=== PATIENT | male | born 1960 | race Hispanic/Latino ===

== ENCOUNTER 2017-11-12 16:09 | Emergency (ER) | payer SELFPAY ==
--- NOTE | 2017-11-12 16:13 | EDPHYS ---
Physician Documentation [facility] Name: Jossue Sharpe Age: 57 yrs Sex: Male : 1960 Arrival Date: 11/12/2017 Time: 15:38 Bed 28 Private MD: ED Physician Reinier Talbert HPI: 11/12 16:17 This 57 yrs old Male presents to ER via EMS with complaints of chemical wa exposure. elevated blood pressure. 16:17 brought in post-exposure to chemical at [place]. Pt was exposed to quench oil. pt was wa decontaminated prior to arrival. pt has no complaints. [place] Physician Dr. Tc Alvarado called and advised me nothing further needs done as pt asymptomatic and de-conn'd appropriately. pt was incidentally brought here for elevated blood pressure of 170 systolic. denies RAI, dizziness, chest pain, SOB or swelling. denies blurry vision. Onset: The symptoms/episode began/occurred just prior to arrival. Severity of symptoms: At their worst the symptoms were moderate in the emergency department the symptoms have improved. The patient has not experienced similar symptoms in the past. The patient has not recently seen a physician. Historical: - Allergies: 15:44 No Known Allergies; rk2 - PMHx: 15:44 Hypertension; rk2 - Immunization history:: Pneumococcal vaccine is not up to date, Flu vaccine is not up to date. - Social history:: Smoking status: Patient/guardian denies using tobacco, never smoked. - Family history:: not pertinent. - Hospitalizations: : No recent hospitalization is reported. ROS: 16:23 Constitutional: Negative for fever, chills, and weight loss, Eyes: Negative for injury, wa pain, redness, and discharge, ENT: Negative for injury, pain, and discharge, Neck: Negative for injury, pain, and swelling, Cardiovascular: Negative for chest pain, palpitations, and edema, Respiratory: Negative for shortness of breath, cough, wheezing, and pleuritic chest pain, Abdomen/GI: Negative for abdominal pain, nausea, vomiting, diarrhea, and constipation, Back: Negative for injury and pain, : Negative for injury, bleeding, discharge, and swelling, MS/Extremity: Negative for injury and deformity, Skin: Negative for injury, rash, and discoloration, Neuro: Negative for headache, weakness, numbness, tingling, and seizure, Psych: Negative for depression, anxiety, suicide ideation, homicidal ideation, and hallucinations. Exam: 16:23 Constitutional: This is a well developed, well nourished patient who is awake, alert, wa and in no acute distress. Head/Face: Normocephalic, atraumatic. Eyes: Pupils equal round and reactive to light, extra-ocular motions intact. Lids and lashes normal. Conjunctiva and sclera are non-icteric and not injected. Cornea within normal limits. Periorbital areas with no swelling, redness, or edema. ENT: Nares patent. No nasal discharge, no septal abnormalities noted. Tympanic membranes are normal and external auditory canals are clear. Oropharynx with no redness, swelling, or masses, exudates, or evidence of obstruction, uvula midline. Mucous membranes moist. Neck: Trachea midline, no thyromegaly or masses palpated, and no cervical lymphadenopathy. Supple, full range of motion without nuchal rigidity, or vertebral point tenderness. No Meningismus. Chest/axilla: Normal chest wall appearance and motion. Nontender with no deformity. No lesions are appreciated. Cardiovascular: Regular rate and rhythm with a normal S1 and S2. No gallops, murmurs, or rubs. Normal PMI, no JVD. No pulse deficits. Respiratory: Lungs have equal breath sounds bilaterally, clear to auscultation and percussion. No rales, rhonchi or wheezes noted. No increased work of breathing, no retractions or nasal flaring. Abdomen/GI: Soft, non-tender, with normal bowel sounds. No distension or tympany. No guarding or rebound. No evidence of tenderness throughout. Back: No spinal tenderness. No costovertebral tenderness. Full range of motion. Skin: Warm, dry with normal turgor. Normal color with no rashes, no lesions, and no evidence of cellulitis. MS/ Extremity: Pulses equal, no cyanosis. Neurovascular intact. Full, normal range of motion. Neuro: Awake and alert, GCS 15, oriented to person, place, time, and situation. Cranial nerves II-XII grossly intact. Motor strength 5/5 in all extremities. Sensory grossly intact. Cerebellar exam normal. Normal gait. Psych: Awake, alert, with orientation to person, place and time. Behavior, mood, and affect are within normal limits. Vital Signs: 15:43 BP 142 / 92; Pulse 52; Resp 17; Temp 98.3; Pulse Ox 99% on R/A; rk2 15:55 BP 138 / 78; Pulse 58; Resp 16; Pulse Ox 100% on R/A; tl3 MDM: 15:41 Patient medically screened. in 16:24 Differential Diagnosis repeat in ED 142/92. will have pt check daily serial BP x 1 week wa and bring report with to primary doctor. discussed the appropriate way of checking BP to pt. Data reviewed: vital signs, nurses notes. Administered Medications: No medications were administered Disposition: 11/12/17 16:12 Discharged to Home. Impression: Elevated Blood Pressure, Chemical Exposure. - Condition is Stable. - Discharge Instructions: Managing Your High Blood Pressure. - Medication Reconciliation Form, Thank You Letter, Antibiotic Education, Prescription Opioid Use form. - Follow up: Private Physician; When: 1 week; Reason: Re-evaluation by your physician. - Problem is new. - Symptoms have improved. - Notes: as discussed, we cannot diagnose you with high blood pressure based on one time elevation. please buy a blood pressure cuff that go on the upper arm. take your pressure accurately (as taught to you) once a day for about 1 week. bring the record to your primary doctor for discussion to see if you need blood pressure medicines. per [place] doctor, follow up with him tomorrow in his clinic for post-exposure care Signatures: Reinier Talbert MD MD in Radha Pope RN RN rk2 Deyanira Del Rio, RN RN tl3 Corrections: (The following items were deleted from the chart) 15:59 15:44 Home Meds: lisinopril 40 mg Oral tab 1 tab once daily; rk2 rk2 16:13 16:12 11/12/2017 16:12 Discharged to Home. Impression: Elevated Blood Pressure. in Condition is Stable. Forms are Medication Reconciliation Form, Thank You Letter, Antibiotic Education, Prescription Opioid Use. Follow up: Private Physician; When: 1 week; Reason: Re-evaluation by your physician. Problem is new. Symptoms have improved. in 16:35 16:13 11/12/2017 16:12 Discharged to Home. Impression: Elevated Blood Pressure; tl3 Chemical Exposure. Condition is Stable. Forms are Medication Reconciliation Form, Thank You Letter, Antibiotic Education, Prescription Opioid Use. Follow up: Private Physician; When: 1 week; Reason: Re-evaluation by your physician. Problem is new. Symptoms have improved. wa
--- NOTE | 2017-11-12 16:13 | ER ---
Nurse's Notes [facility] Name: Jossue Sharpe Age: 57 yrs Sex: Male : 1960 Arrival Date: 11/12/2017 Time: 15:38 Bed 28 Private MD: Diagnosis: Elevated Blood Pressure;Chemical Exposure Presentation: 11/12 15:39 Presenting complaint: EMS states: Pt. comes from [place] by EMS... c/o Quench Oil splashing rk2 on side of face and left wrist. Pt. was wearing a face mask/shield and denies contact with eyes. Pt. was showered for 30 min before arrival. Pt. states that the burning feeling he had is now gone. No obvious calzada noted. Transition of care: patient was not received from another setting of care. Onset of symptoms was November 12, 2017. Initial Sepsis Screen: Does the patient meet any 2 criteria? No. Patient's initial sepsis screen is negative. Does the patient have a suspected source of infection? No. Patient's initial sepsis screen is negative. Care prior to arrival: Decontamination. 15:39 Method Of Arrival: EMS: [facility] 2 15:39 Acuity: SHRUTHI 4 rk2 Triage Assessment: 16:00 General: Appears in no apparent distress. well groomed, well developed, well nourished, rk2 Behavior is calm, cooperative. Pain: Denies pain. Neuro: Level of Consciousness is alert, obeys commands, Oriented to person, place, time, situation. Respiratory: Airway is patent Respiratory effort is even, unlabored, Respiratory pattern is regular, symmetrical. Derm: Skin is pink, warm \T\ dry. No obvious calzada noted. Historical: - Allergies: 15:44 No Known Allergies; rk2 - PMHx: 15:44 Hypertension; rk2 - Immunization history:: Pneumococcal vaccine is not up to date, Flu vaccine is not up to date. - Social history:: Smoking status: Patient/guardian denies using tobacco, never smoked. - Family history:: not pertinent. - Hospitalizations: : No recent hospitalization is reported. Screenin:59 Abuse screen: Denies threats or abuse. Nutritional screening: No deficits noted. rk2 Tuberculosis screening: No symptoms or risk factors identified. Fall Risk None identified. Assessment: 15:55 Reassessment: pt was exposed to a chemical at work, showered for 15 minutes at job site tl3 after removing clothes. General: Appears in no apparent distress. comfortable, well groomed, well developed, well nourished, Behavior is calm, cooperative, appropriate for age. Pain: Denies pain. Neuro: No deficits noted. Level of Consciousness is awake, alert, obeys commands, Oriented to person, place, time, situation, Appropriate for age. Cardiovascular: Heart tones S1 S2 present Capillary refill Patient's skin is warm and dry. Respiratory: Airway is patent Trachea midline Respiratory effort is even, unlabored, Respiratory pattern is regular, symmetrical, Breath sounds are clear bilaterally. GI: No signs and/or symptoms were reported involving the gastrointestinal system. : No signs and/or symptoms were reported regarding the genitourinary system. EENT: No signs and/or symptoms were reported regarding the EENT system. Derm: No signs and/or symptoms reported regarding the dermatologic system. Musculoskeletal: No signs and/or symptoms reported regarding the musculoskeletal system. Vital Signs: 15:43 BP 142 / 92; Pulse 52; Resp 17; Temp 98.3; Pulse Ox 99% on R/A; rk2 15:55 BP 138 / 78; Pulse 58; Resp 16; Pulse Ox 100% on R/A; tl3 ED Course: 15:38 Patient arrived in ED. rk2 15:41 Reinier Talbert MD is Attending Physician. nd 15:43 Triage completed. rk2 15:54 Radha Pope, ALEX is Primary Nurse. rk2 15:55 No provider procedures requiring assistance completed. Patient did not have IV access tl3 during this emergency room visit. 15:59 Patient has correct armband on for positive identification. Bed in low position. Call rk2 light in reach. Side rails up X2. 16:01 Arm band placed on. rk2 Administered Medications: No medications were administered Outcome: 16:12 Discharge ordered by . wa 16:35 Discharged to home ambulatory. tl3 16:35 Condition: good 16:35 Discharge instructions given to patient, Instructed on discharge instructions, Demonstrated understanding of instructions, follow-up care. 16:35 Patient left the ED. tl3 Signatures: Reinier Talbert MD MD wa Kidder, Rhonda, RN RN rk2 Deyanira Del Rio RN RN tl3 Corrections: (The following items were deleted from the chart) 15:59 15:44 Home Meds: lisinopril 40 mg Oral tab 1 tab once daily; rk2 rk2
== END 2017-11-12 16:35 | disposition home or self-care (01) ==
LOC: ER 16:09
DX: I10 Essential (primary) hypertension (principal)
CPT/HCPCS: 99283